=== PATIENT | female | born 2000 | race Caucasian/White ===

== ENCOUNTER 2018-08-28 20:21 | Emergency (ER) | payer OTHER ==
[~2018-08-28] VITALS: Ht 165.1 cm; Wt 59.4 kg
[2018-08-28 20:27] VITALS: Ht 165.1 cm; Wt 59.4 kg
[2018-08-28 21:32] VITALS: BP 107/64
== END 2018-08-28 21:32 | disposition home or self-care (01) ==
LOC: ED 20:21
DX: S60.111A Contusion of right thumb with damage to nail, initial encounter (principal); W22.8XXA Striking against or struck by other objects, initial encounter; Y93.89 Activity, other specified; Y92.89 Other specified places as the place of occurrence of the external cause; Y99.8 Other external cause status